=== PATIENT | male | born 1945 | race Caucasian/White ===

== ENCOUNTER → 2022-05-17 11:07 | Outpatient (CLI) | payer MEDICARE, SELFPAY ==
[2022-05-17 12:04] LABS: Appearance Urine UA CLEAR; Bilirubin Urine UA NEGATIVE (NEGATIVE); Color Urine UA YELLOW; Glucose Urine UA NEGATIVE (Negative); Ketones Urine UA NEGATIVE (NEGATIVE); Leukocyte Esterase Urine UA TRACE (NEGATIVE); Nitrite Urine UA NEGATIVE (Negative); Occult Blood Urine UA TRACE-INTACT (Negative); Protein Urine UA NEGATIVE (Negative); pH Urine UA 6.5 (4.5-8.0)
[2022-05-17 12:07] LABS: RBC Urine 0-1/HPF (0-5/HPF)
[2022-05-17 12:08] LABS: Bacteria Urine None Seen; Culture Indicated Urine Specimen Cultured; Squamous Epithelial Cell Urine 0-1 /HPF (0-5/HPF); WBC Urine 0-1/HPF (0-5/HPF)
[2022-05-17 12:11] LABS: Add Manual Diff / Slide Review NO; Basophils Absolute Auto 100 /uL (0-100); Basophils Percent Auto 0.6 % (0-2); Eosinophils Absolute Auto 300 /uL (0-450); Eosinophils Percent Auto 3.2 % (2-4); Hematocrit 40.1 % (41-53); Hemoglobin 13.7 g/dL (13.5-17.5); Lymphocytes Absolute Auto 1400 /uL (1100-4500); Lymphocytes Percent Auto 16.1 % (25-40); Mean Corpuscular HGB Conc 34.2 % (30-36); Mean Corpuscular Hemoglobin 29.4 PG (26-34); Monocytes Absolute Auto 700 /uL (0-900); Monocytes Percent Auto 8.3 % (3-14); Neutrophils Absolute Auto 6400 /uL (1500-7000); Neutrophils Percent Auto 71.8 % (50-75); Platelet Count 180 X10^3/uL (150-400); Red Blood Cell Count 4.66 X10^6/uL (4.5-5.9); Red Cell Distribution Width 14.2 % (11.6-14.8); White Blood Cell Count 8.9 X10^3/uL (4.5-11.0)
[2022-05-17 13:12] LABS: BUN Creatinine Ratio 31.9 (6-22); Blood Urea Nitrogen 22 mg/dL (9-20); Calcium 9.1 mg/dL (8.4-10.2); Carbon Dioxide 26 mmol/L (22-32); Chloride 104 mmol/L (98-107); Estimated Glomerular Filt Rate > 60 mL/min (>60); Glucose 82 mg/dL (80-110); HEMOLYSIS < 15 (0-50); Potassium 4.2 mmol/L (3.4-5.1); Sodium 139 mmol/L (137-145)
[2022-05-17 19:05] LABS: Hemoglobin A1C% w Est Avg Glu 5.9 % (4.0-6.0)
== END ==
PROVIDERS: PCP Nurse Practitioner Family; Referring Provider Orthopaedic Surgery; Visit Provider Orthopaedic Surgery
DX: Z01.818 Encounter for other preprocedural examination (principal); R73.9 Hyperglycemia, unspecified; Z01.812 Encounter for preprocedural laboratory examination; N39.0 Urinary tract infection, site not specified
CPT/HCPCS: 36415; 80048; 81001; 83036; 85025; 87086; 93005; 93010

== ENCOUNTER → 2022-06-11 12:47 | Outpatient (CLI) | payer MEDICARE, SELFPAY ==
[2022-06-11 13:58] LABS: COVID19 -Nasal RAPID Negative (Negative)
== END ==
PROVIDERS: PCP Nurse Practitioner Family; Referring Provider Orthopaedic Surgery; Visit Provider Orthopaedic Surgery
DX: Z20.822 Contact with and (suspected) exposure to COVID-19 (principal)
CPT/HCPCS: 87635; C9803

== ENCOUNTER 2022-06-14 09:03 | Day surgery (SDC) | payer MEDICARE, SELFPAY ==
[2022-06-10 09:09] VITALS: BMI 29.4
[2022-06-14] VITALS (17 sets, daily range): BP systolic 111–159; BP diastolic 51–84; PULSE 63–89; RESP 16–23; TEMP 36.1–36.9; O2SAT 91–100; BMI 29.4
--- NOTE | 2022-06-14 | DI.RAD.S_ITS ---
PROCEDURE: XR HIP W PEL IF DONE RT 2V INDICATIONS: RIGHT TOTAL HIP POST OP TECHNIQUE: AP pelvis and lateral view of the right hip acquired. COMPARISON: [facility], CR, XR PELVIS WITH LATERAL HIP RIGHT, 03/24/2022, 10:38. [facility], CR, XR PELVIS 1-2V, 06/14/2022, 11:51. FINDINGS: Bones: Patient is status post right hip arthroplasty, with hardware components in expected positions. The hip joint appears congruent. The visualized bony structures appear intact. Soft tissues: Overlying postoperative changes are noted. No suspicious soft tissue densities. Stable surgical clips in the right groin. IMPRESSION: Expected postsurgical change for right hip arthroplasty. Dictated by: Purvi Ellis MD, PhD on 06/14/2022 at 13:58 Approved by: Purvi Ellis MD, PhD on 06/14/2022 at 13:59
--- NOTE | 2022-06-14 06:00 | DI.RAD.S_ITS ---
PROCEDURE: XR PELVIS 1-2V INDICATIONS: INNER OP CESARIO TECHNIQUE: Intra-operative view of the pelvis and hip acquired. COMPARISON: None. FINDINGS: Bones: Intraoperative devices prior to placement of arthroplasty prostheses are in expected positions. No fractures or suspicious bony lesions. Soft tissues: Overlying surgical retractors are present, along with other intraoperative changes. IMPRESSION: Expected intraoperative surgical changes prior to placement of arthroplasty prosthesis. Dictated by: Purvi Ellis MD, PhD on 06/14/2022 at 14:18 Approved by: Purvi Ellis MD, PhD on 06/14/2022 at 14:18
[2022-06-14] MEDS: VANCOMYCIN 1,000 MG/200 ML PIGGYBACK 200 MG IV (09:45)
[2022-06-14] MEDS: CELECOXIB 200 MG CAPSULE PO (09:50)
[2022-06-14] MEDS: ACETAMINOPHEN 325 MG TABLET 975 MG PO (09:50)
[2022-06-14] MEDS: LACTATED RINGERS 1,000 ML 42 ML IV ×2 (10:00→12:43)
--- NOTE | 2022-06-14 10:05 | P.OP_ITS ---
Operative Date/Time/Diagnoses Date of procedure: 06/14/22 Time of procedure: 11:00 Pre-op diagnosis: Right hip osteoarthritis severe Post-op diagnosis: same Procedure & Clinicians Procedure: Right total hip arthroplasty posterior approach Same procedure as scheduled: Yes Indications: The patient has had progressively worsening right hip pain with radiographic changes consistent with arthritis. Non-operative management has failed and the patient has requested total hip replacement. The risks, benefits and alternatives to surgery were discussed with the patient prior to proceeding. Risks discussed included, but were not limited to, failure to relieve pain, leg length discrepancy, dislocation, stiffness, infection, nerve damage, deep venous thrombosis, pulmonary embolism, stroke, coma, heart attack, permanent paralysis and , as well as the potential need for eventual revision of the prosthetic. Surgeon: Summer Mari Mobile Qa Tester: Campos Foss Anesthesia Type: General and Spinal Operative Notes Findings: Severe right hip osteoarthritis, adequate stability Closure Type: primary Specimen(s): none sent Prosthetic devices, grafts, tissues, transplants, or devices: Mari and nephew R3 cup 56, size 7 anthology high offset, 36 x +4 cobalt chrome head, neutral poly liner,two 6.5 mm screws Applied: drain(s) Estimated Blood Loss (mL): 250 Blood products transfused: none Procedure in detail: The patient was seen in the pre-operative area, where the patient identified the right hip as the operative site and this was marked with my initials. The patient received pre-operative antibiotics and was taken to the operating room and placed on the operative table in the left lateral decubitus position after satisfactory anesthesia. A engraved roller inspector out was performed. The right leg was prepared from the ankle to the iliac crest with ChloroPrep in the usual fashion and draped through sterile drapes. The hip was approached through an approximately 20 cm incision centered over the greater trochanter and curving gently posteriorly as it went proximally. This was carried sharply to the fascia karine, which was divided and retracted with a self retaining retractor. The trochanteric bursa was excised with care being taken to avoid the sciatic nerve, which was identified and protected throughout the case. The short external rotators were incised and the capsulomuscular flap was raised and tagged for later repair. The hip was dislocated, and a femoral neck osteotomy performed approximately 15 mm above the lesser trochanter. Retractors were placed around the femur. The canal was opened with a box cutting osteotome, followed by a T handled reamer and a lateralizing reamer. The chili pepper broach was then used, followed by sequential broaching until there was good stability of the broach in the femur. Retractors were placed to expose the acetabulum. The labrum and central soft tissues were removed. Reaming was performed initially going up in 2 mm incremen ts, then 1 mm increments until good bite was obtained with an odd sized reamer. The cup 1 mm larger than the last reamer was then inserted using the appropriate anteversion guides. A trial neutral liner was placed. The broach was placed in the canal. A trial head and neck were then placed and the hip relocated and checked for leg length and stability. An intraoperative film confirmed the component position and no evidence of fracture. The cup shifted slightly with range of motion and we removed it reamed slightly more and replace the cup and placed 2 screws for stabilization. Neutral poly liner was placed. A 2nd intraoperative film was taken the 1st film was with a standard offset 2nd film I went to a high offset neck. The patient was stable in the position of sleep, of squatting, and could be put through a range of motion with 45 degrees internal rotation without dislocation. At 90 degrees flexion, internal rotation to 60? was possible before dislocation. This was felt to be satisfactory and the appropriate components were opened, and the trials were removed. The acetabular liner was impacted into position. The final stem was then impacted into the prepared femoral canal. A brief Betadine soak was performed while trialing with head options. The hip was meticulously irrigated with normal saline. Finally the femoral head was impacted onto the stem. The acetabulum was cleared of all material and the hip relocated one final time. The capsulomuscular flap was then repaired to the greater trochanter though an awl hole using the tag sutures. The short external rotators were repaired with a nonabsorbable suture. A deep drain was placed and brought out anteriorly. The fascia karine was closed with Vicryl. The subcutaneous layer was closed with barbed sutures and surgical glue. An Aquacel Ag dressing was applied and the patient was taken to recovery having tolerated the procedure well. Complications: none Post-operative Condition: stable Disposition: Acute Care Plan for aftercare: The patient will be maintained on a standard total hip replacement protocol with weight bearing as tolerated and posterior hip precautions. The patient will receive Aspirin and sequential compression devices for DVT prophylaxis. The patient will be discharged home when safe for the home environment.
--- NOTE | 2022-06-14 10:05 | PM.PREOP ---
Pre-operative Note COVID-19 COVID-19 status: Negative Interval Note History & Physical reviewed/Exam performed by Physician: Yes Changes to H&P: No
[2022-06-14] MEDS: CEFAZOLIN 2 GM/100 ML PREMIX 100 ML IV ×2 (10:56→20:12)
[2022-06-14] MEDS: TRANEXAMIC ACID 1,000 MG VIAL 2000 MG INJ ×2 (10:58→12:44)
--- NOTE | 2022-06-14 11:13 | SUR.OPER ---
Lateral on padded OR bed. Gel axillary roll. Arms secured on padded armboard with pillow supporting top arm. Padded hip positioner braces x4 - anterior and posterior chest and pelvis. Additional gel pad used anterior pelvis. Gel pad under bottom leg from knee to foot and secured with tape over sheet.
[2022-06-14] MEDS: BUPIVACAINE LIPOSOME 266 MG/20 ML VIAL INJ (11:19)
[2022-06-14] MEDS: BUPIVACAINE 0.5% W/ EPI (PF) 30 ML VIAL INJ (11:21)
[2022-06-14] MEDS: SODIUM CHLORIDE IRRIG SOLUTION 250 ML, POVIDONE-IODINE SPONGE STICKS 1 APPLIC IRR (12:53)
[2022-06-14] MEDS: OXYCODONE IR 5 MG TABLET PO ×2 (14:01→22:45)
[2022-06-14] MEDS: hydrOXYzine pamoate 25 MG CAPSULE PO (14:02)
[2022-06-14] MEDS: HYDROMORPHONE 2 MG INJ IV (14:07)
[2022-06-14] MEDS: LACTATED RINGERS 1,000 ML 125 ML IV ×2 (14:56→23:52)
--- NOTE | 2022-06-14 16:15 | PT.IIE ---
Current Diagnoses Unilateral primary osteoarthritis, left hip (06/14/22) Surgery Performed Operation Date: 06/14/22 11:15 Actual Procedures p Total Hip Arthroplasty(Right) - Summer Mari MD Surgical History (Last Updated 06/07/22 @ 09:22 by Ciara Villanueva, RN) History of surgery Hx of heart artery stent (04/28/17) Medical History (Last Updated 06/07/22 @ 09:22 by Ciara Villanueva, RN) Arthritis Chronic back pain Chronic neck pain Diverticulosis Glaucoma HLD (hyperlipidemia) HTN (hypertension) Kidney stones Neuropathy Osteoarthritis Psoriasis SOB (shortness of breath) Physical Therapy Inpatient Evaluation/Re-Eval M1 PT/OT-IP Prior Functional Status Start: 06/14/22 18:22 Freq: NEEDED Status: Active Protocol: Document 06/14/22 16:15 AB (Rec: 06/14/22 18:33 AB [id number]) Medical Review Prior Functional Status Medical History Reviewed Yes Communication able to make needs known Mobility and Gait pt stated that he is modified independent witha ll mobilities and ambulation using a SPC Social History Household Members spouse Living Arrangements House Number of Floors (Floors) 3 or More Floors Number of Stairs To Enter/Railing? 3 steps L rail ascending to enter the house 13 steps R rail ascending to bedroom level Home Environment Standard Height Toilet,Tub/ Shower Home Equipment Front Wheel Walker,Straight Cane,Raised Toilet Seat w/ Armrests,Hand Held Shower,Grab Bars In Shower M2 PT-IP Current Condition Start: 06/14/22 18:22 Freq: NEEDED Status: Active Protocol: Document 06/14/22 16:15 AB (Rec: 06/14/22 18:33 AB [email or web address]) Physical Therapy Current Condition Current Condition Evaluation Date 06/14/22 Treatment Diagnosis s/p R CESARIO posterior approach; difficulty in walking Onset Date 06/14/21 M3 PT-IP Subjective Start: 06/14/22 18:22 Freq: NEEDED Status: Active Protocol: Document 06/14/22 16:15 AB (Rec: 06/14/22 18:33 AB [email or web address]) Subjective Physical Therapy Visit Type Type Initial Evaluation Visit Start Time 16:15 Visit Stop Time 17:44 Total Visit Minutes 89 Number of POLEYARD SUPERVISOR Visits 0 Physical Therapy Visit Comments Patient Comments agreeable to do PT Therapy Pain Assessment Pain When Pain Assessed At Rest Pain Present Pain Present Pain Reported Location hip Intensity 2 Pain Management Techniques Apply Cold,Distraction, Modification of Treatment,Re- positioning,Timing of Activity with Medications M4 PT-IP Mobility and Gait Start: 06/14/22 18:22 Freq: NEEDED Status: Active Protocol: Document 06/14/22 16:15 AB (Rec: 06/14/22 18:33 AB [email or web address]) PT-Bed Mobility Assessment Supine to Sit Supine to Sit Minimal Assistance PT-Transfer Assessment Sit to and From Stand Sit to and from Stand Maximum Assistance,1 Person Assistance,Use of Upper Extremities Equipment Transfer Assistive Device Gait Belt,Front Wheeled Walker Orthotic/Prosthetic Devices or Brace: No Transfers Transfer Destination Chair Transfer Technique ambulated Transfer Ability Level of Assist Moderate Assistance,1 Person Assistance,Use of Upper Extremities Comments Mobility Comments educated pt on posterior hip precautions. BP in supine: 125/62. pt completed supine to sit min A and cues. tends to have BLE in extension during sitting and has increase posterior trunk lean. completed sit to stand max A x 2 and max cues for techniques. instructed to sit back down requiring max A for controlled descent. instructed pt to get up again and able with max A x 1 and max cues. ambulated towards the chair mod A and max cues. increase R knee flexion and pt stated that RLE seems longer than L. pt required increase time to ambulate with very slow pace. pt sat on the chair max A and max cues. c/o dizziness. BP checked: 121/ 54. informed nurse. positioned pt on the chair. call light and table placed within reach. set up for dinner. called spouse for caregiver training and stated that the earliest she can come is 11am. Gait Assessment Gait Gait Assistance Required: Moderate Assistance Distance (Feet) 15 Able to Maintain Weight Bearing Status Yes During Gait Assistive Devices Assistive Device Gait Belt,Front Wheeled Walker Orthotic/Prosthetic Devices or Brace: No Gait Deviations General Gait Pattern Decreased Stride Length, Decreased Feet Clearance Factors Limiting Gait Function Factors Limiting Gait Function Decreased Activity Tolerance, Decreased Strength,Difficulty Following Directions,Limited Range of Motion,Pain,Poor Balance,Poor Safety Awareness PT-Balance Assessment Sitting Balance and Reactions Static Sitting Balance Ability Fair Dynamic Sitting Balance Ability Fair Standing Balance and Reactions Static Standing Balance Ability Poor Dynamic Standing Balance Ability Poor Device Used FWW M5 PT-IP Objective Assessments Start: 06/14/22 18:22 Freq: NEEDED Status: Active Protocol: Document 06/14/22 16:15 AB (Rec: 06/14/22 18:33 AB [email or web address]) Orientation Orientation/Cognition Level of Alertness Alert Orientation Name,Place,Situation Language Function Ability No Deficits Noted Safety Awareness Decreased Safety Awareness Memory Description Short Term Impaired Gross Range of Motion Lower Extremity ROM Assessment Within Functional Limits Strength Lower Extremity Strength Assessment Right Impaired Hip 3+/5 Knee 4-/5 Sensation Assessment Sensation Gross Sensation WNL Muscle Tone Muscle Tone WNL Yes M6 PT-IP Treatment Start: 06/14/22 18:22 Freq: NEEDED Status: Active Protocol: Document 06/14/22 16:15 AB (Rec: 06/14/22 18:33 AB [email or web address]) Physical Therapy Treatment Education Education Provided Precautions,Weight Bearing Status,Post-Op Packet,Safety M7 PT-IP Assessment and Plan Start: 06/14/22 18:22 Freq: NEEDED Status: Active Protocol: Document 06/14/22 16:15 AB (Rec: 06/14/22 18:33 AB [email or web address]) PT Summary Assessment and Plan Potential Rehabilitation Potential Fair Status of Condition at Evaluation Evolving Summary Impairments Pain,ROM,Strength,Balance, Coordination,Sensation,Tone, Cognition,Bed Mobility, Transfers,Gait,Activity Tolerance Assessment Summary pt requiring max A for sit to stand and mod A for ambulation using FWW. requires cues for hip precautions. caregiver training set up with spouse at 11 am tomorrow. will continue to assess progress. pt also needs to complete stair climbing training. Goals Bed Mobility Goal Standby Assistance Transfer Goal Standby Assistance,Front Wheeled Walker Gait Goal Standby Assistance,Front Wheel Walker Gait Distance 100 Other Goals up/down 3 steps L rail ascending SBA up/down 13 steps R rail ascending SBA Frequency of Treatment Frequency Of Treatment Twice a Day Treatment Plan Physical Therapy Treatment Plan Bed Mobility Training,Transfer Training,Gait Training, Therapeutic Exercise,Balance Retraining,Post Op Education, Discharge Planning,Hot or Cold Pack,Neuromuscular Re-ed, Coordination Retraining,Manual Therapy Precautions Posterior Hip Precautions No Hip Flexion > 90 degrees,No Hip Internal Rotation,No Hip Adduction Weight Bearing Status Weight Bearing Status Weight Bear as Tolerated Allowed Weight Bearing Amount (enter % RLE WBAT or #) (%) Recommendations To Nursing Amount of Assist Needed 1 Person Assist Discharge Recommendations PT Discharge Recommendations Home with 02/01 Assist Available,Home Health,SNF Rehab,Outpatient PT,Home vs SNF Transportation Needs at Discharge Private Vehicle,Wheelchair/ Cabulance
[2022-06-14] MEDS: DOCUSATE 100 MG CAPSULE PO (20:12)
[2022-06-14] MEDS: LATANOPROST 0.005% OPHTH 2.5 ML 1 DROPS EYE-BOTH (20:12)
[2022-06-14] MEDS: ASPIRIN EC 81 MG TABLET PO (20:12)
[2022-06-14] MEDS: PREGABALIN 50 MG CAPSULE 100 MG PO (20:12)
--- NOTE | 2022-06-15 02:20 | PC.NURSE ---
Re-educated pt multiple times to not get out w/o assistance. Pt has spilled urinal 2x while trying to stand to urinate w/o assistance. Offered scheduled tyl/ibu, pt declined as it 'does not work for him', 5mg oxy given.
[2022-06-15 03:00] VITALS: BP 112/61; PULSE 76; TEMP 36.1; O2SAT 94
[2022-06-15] MEDS: CEFAZOLIN 2 GM/100 ML PREMIX 100 ML IV (03:10)
[2022-06-15] MEDS: IBUPROFEN 400 MG TABLET PO (05:05)
[2022-06-15 05:37] LABS: Hematocrit 35.1 % (41-53); Hemoglobin 11.7 g/dL (13.5-17.5)
[2022-06-15 07:00] VITALS: RESP 18
--- NOTE | 2022-06-15 08:08 | P.DS_ITS ---
History of Present Illness History of Present Illness Date Patient Seen: 06/15/22 Time Patient Seen: 08:08 Chief complaint: Hip pain Narrative: Patient notes pain is [id number]. Denies fever or chills. No nausea or vomiting. Patient has his home to assist him. Otherwise without complaints. Discharge Providers Provider Discharge Date: 06/15/22 Primary care physician: YOBANY Martins Consults: 06/14/22 06:00 Consult to Anesthesiology Routine Comment: Consulting Provider: Anesthesiologist Reason for consultation: Regional block for post operative pain control 06/14/22 14:41 Consult to Discharge Planning Routine Comment: Consult to Physical Therapy Evaluate & Treat Comment: Physician Instructions: post op CESARIO protocol Discharge provider: Campos Foss PA-C Summary Hospital Course Discharge Diagnosis: Right hip osteoarthritis, severe Hospital Course: Right total hip arthroplasty posterior approach Same procedure as scheduled: Yes Indications: The patient has had progressively worsening right hip pain with radiographic changes consistent with arthritis. Non-operative management has failed and the patient has requested total hip replacement. The risks, benefits and alternatives to surgery were discussed with the patient prior to proceeding. Risks discussed included, but were not limited to, failure to relieve pain, leg length discrepancy, dislocation, stiffness, infection, nerve damage, deep venous thrombosis, pulmonary embolism, stroke, coma, heart attack, permanent paralysis and , as well as the potential need for eventual revision of the prosthetic. Surgeon: Summer Mari Solderer Electronic: Campos Foss Anesthesia Type: General and Spinal Operative Notes Findings: Severe right hip osteoarthritis, adequate stability Closure Type: primary Specimen(s): none sent Prosthetic devices, grafts, tissues, transplants, or devices: Mari and nephew R3 cup 56, size 7 anthology high offset, 36 x +4 cobalt chrome head, neutral poly liner,two 6.5 mm screws Applied: drain(s) Estimated Blood Loss (mL): 250 Blood products transfused: none Patient admitted for the above-mentioned procedure. Patient consented to the same. Patient taken operating room yesterday June 14, 2022. The patient back in his room recovering well as in stable condition. Patient will work with physical therapy and be discharged home today if safe for home environment Status at Discharge Cognitive/behavioral status at discharge: at baseline, oriented Functional status at discharge: uses cane/walker Overall status at discharge: patient is progressing back to baseline Exam Vital Signs (past 8 hours): - 06/15/22 03:00 Temperature 97 F L Pulse Rate 76 Blood Pressure 112/61 Pulse Oximetry 94 Oxygen Flow Rate 0 Oxygen Delivery Method Room Air Oxygen Flow Rate 0 Narrative Exam Narrative: 76-year-old male resting comfortably in bed in no apparent distress. Dressing is clean, dry and intact. Motor functions intact bilateral lower extremities. Sensation grossly intact to light touch bilateral lower extremities. Const General: cooperative, healthy appearing and comfortable Nutritional Appearance: average body habitus Orientation: alert HENMT Head: normal to inspection Resp Effort & Inspection: normal respiratory effort Objective Labs Result Diagrams: 06/15/22 04:52 Labs: Laboratory Results - last 24 hr 06/15/22 04:52 Hgb 11.7 L Hct 35.1 L PFSH Medical History Arthritis Chronic back pain Chronic neck pain Diverticulosis Glaucoma HLD (hyperlipidemia) HTN (hypertension) Kidney stones Neuropathy Osteoarthritis Psoriasis SOB (shortness of breath) Surgical History History of surgery Hx of heart artery stent (04/28/17) Social History household members: spouse Smoking Status: Former smoker alcohol intake: current Discharge Assessment & Plan Assessment and Plan Assessment: Patient progressing as expected Plan of Treatment: Physical therapy Posterior hip precautions, weight-bearing as tolerated Aspirin and SCDs for DVT prophylaxis Patient has prescription for pain meds at home, to be taken as directed Discharge home today after physical therapy if safe for home environment. Discharge Plan Discharge Plan Patient Disposition: Home Discharge orders & Medications Discharge Orders: Discharge (Order); Ordered 06/15/22 Ordered By: Campos Foss Prescriptions: New aspirin 81 mg Tablet,Delayed Release (Dr/Ec) 81 mg PO BID Qty: 60 0RF docusate sodium 100 mg Capsule 100 mg PO BID Qty: 20 0RF Continued latanoprost 0.005 % Drops 1 drp EYE-BOTH BEDTIME atorvastatin 80 mg Tablet 80 mg PO DAILY furosemide 20 mg Tablet 20 mg PO DAILY pregabalin 100 mg Capsule 100 mg PO BEDTIME Discontinued aspirin [Aspir-81] 81 mg Tablet,Delayed Release (Dr/Ec) 81 mg PO DAILY Follow up/Referrals: Summer Mari MD [Physician] - As previously scheduled (Follow up with Dr Mari on 06/29/2022 @ 11:00 am at [facility] Maeve Valles ARNP [Primary Care Provider] - Diet/Activity/Treatments Diet: Diet as Tolerated Activity: Weight bearing as tolerated to left leg. Posterior hip precautions. Cold/Heat Therapy: Ice to hip as needed for pain. Skin/Wound/Dressing Care Report to your healthcare provider any signs of infection, such as:: chills, fever, night sweats, increased pain, unusual drainage and unusual redness Dressing: Keep dressing clean and dry Visit Report/Discharge Packet Instructions: DI for Hip Replacement Stand Alone Forms: Surgery Discharge Discharge Data Primary Care Provider: Maeve Valles Attending Provider: Summer Mari
[2022-06-15] MEDS: ATORVASTATIN 20 MG TABLET 80 MG PO (08:18)
[2022-06-15] MEDS: DOCUSATE 100 MG CAPSULE PO (08:19)
[2022-06-15] MEDS: ASPIRIN EC 81 MG TABLET PO (08:19)
[2022-06-15] MEDS: FUROSEMIDE 20 MG TABLET PO (08:19)
[2022-06-15] MEDS: OXYCODONE IR 10 MG TABLET PO (09:53)
[2022-06-15 11:00] VITALS: RESP 18; O2SAT 96
--- NOTE | 2022-06-15 11:00 | PT.IPTN ---
Current Diagnoses Unilateral primary osteoarthritis, left hip (06/14/22) Surgery Performed Operation Date: 06/14/22 11:15 Actual Procedures p Total Hip Arthroplasty(Right) - Summer Mari MD Physical Therapy Treatment Note M2 PT-IP Current Condition Start: 06/14/22 18:22 Freq: NEEDED Status: Discharge Protocol: Document 06/14/22 16:15 AB (Rec: 06/14/22 18:33 AB [id number]) Physical Therapy Current Condition Current Condition Evaluation Date 06/14/22 Treatment Diagnosis s/p R CESARIO posterior approach; difficulty in walking Onset Date 06/14/21 M3 PT-IP Subjective Start: 06/14/22 18:22 Freq: NEEDED Status: Discharge Protocol: Document 06/15/22 11:00 AB (Rec: 06/15/22 14:00 AB [email or web address]) Subjective Physical Therapy Visit Type Type Treatment Note Visit Start Time 11:00 Visit Stop Time 13:03 Total Visit Minutes 123 Number of CALL CENTER AGENT Visits 0 Physical Therapy Visit Comments Patient Comments agreeable to do PT Therapy Pain Assessment Pain When Pain Assessed At Rest Location hip Intensity 3 Scale Used Numeric (0 - 10) M4 PT-IP Mobility and Gait Start: 06/14/22 18:22 Freq: NEEDED Status: Discharge Protocol: Document 06/15/22 11:00 AB (Rec: 06/15/22 14:00 AB [email or web address]) PT-Bed Mobility Assessment Supine to Sit Supine to Sit Standby Assistance Sit to Supine Sit to Supine Standby Assistance PT-Transfer Assessment Sit to and From Stand Sit to and from Stand Minimal Assistance,Moderate Assistance,Maximum Assistance, 1 Person Assistance,Use of Upper Extremities Equipment Transfer Assistive Device Gait Belt,Front Wheeled Walker Orthotic/Prosthetic Devices or Brace: No Transfers Transfer Destination Bed,Toilet Transfer Technique ambulated Transfer Ability Level of Assist Contact Guard Assistance,1 Person Assistance,Use of Upper Extremities Comments Mobility Comments pt's spouse in room for caregiver training. educated spouse regarding pt's posterior hip precautions. pt completed supine to sit SBA and max cues to complete. completed sit to stand max A and max cues from EOB. pt easily gets anxious and easily distracted requiring cues for safety and hip precautions. instructed pt to sit back on EOB. educated again on sit <> stand techniques. able to complete sit to stand x 2 reps min to mod A and max cues. pt ambulated to the chair ~ 12 ft using fWW CGA and cues. pt sat on chair. Caregiver training conducted. educated spouse on how to use safety belt and how to assist pt. spouse was able to put safety belt on pt but has to redo x 2 . spouse assisted pt with sit to stand from chair x 2 reps min to mod A with spouse assisted. pt step transfer to EOB with spouse assisting CGA . completed sit to stand from EOB x 2 reps max A and max cues. informed pt and spouse that pt sits on a higher surface and preferable with arm rests. asked pt and spouse of bed's height at home and stated that it is high. pt requesting to use the toilet. sit to stand from bed mod to max A and ambulated to the toilet using FWW CGA. pt able to maintain standing SBA while using the toilet. pt ambulated towards the sink using FWW CGA and able to maintain standing SBA while completing handwashing. bed adjusted to simulate pt's bed height at home. pt ambulated to EOB using FWW SBA . completed sit to supine SBA and cues. required increase time to complete. pt able to stand from high bed with spouse assisting min A. pt ambulated in the hallway using FWW CGA ~ 100 ft. assisted pt towards the stairs in a w/c. pt stated that he has 4 steps + 15 steps L rail ascending to get into the house and 13 steps again to get to bedroom level. educated pt and spouse regarding stair climbing. pt completed up/down steps holding on the R rail with B hands with PT assisting and pt completed min to mod A and cues. pt repeated with spouse assisting and spouse was able to assist pt. pt completed stairs again holding on to L rail with B hands and completed with spouse assisting. pt assisted back to his room. ambulated from w/c to chair using FWW SBA. spouse able to assist and cue pt. Gait Assessment Gait Gait Assistance Required: Contact Guard Assist Distance (Feet) 100 Able to Maintain Weight Bearing Status Yes During Gait Assistive Devices Assistive Device Gait Belt,Front Wheeled Walker Orthotic/Prosthetic Devices or Brace: No Gait Deviations General Gait Pattern Antalgic,Decreased Stride Length,Decreased Feet Clearance,Step-to Gait,Wide Based Gait Factors Limiting Gait Function Factors Limiting Gait Function Decreased Activity Tolerance, Decreased Strength,Difficulty Following Directions,Limited Range of Motion,Pain,Poor Balance,Poor Safety Awareness, Respiratory Distress Stair Climbing Assessment Evaluation Level of Assist On Stairs Minimal Assistance,Moderate Assistance Devices Stair Climbing Assistive Devices Left Railing,Right Railing Technique/Endurance Stair Climbing Direction Ascend and Descend Stair Climbing Technique Step to Step Number of Steps Climbed 3 Stair Climbing Set # Repetitions (reps) 3 M5 PT-IP Objective Assessments Start: 06/14/22 18:22 Freq: NEEDED Status: Discharge Protocol: Document 06/14/22 16:15 AB (Rec: 06/14/22 18:33 AB [email or web address]) Orientation Orientation/Cognition Level of Alertness Alert Orientation Name,Place,Situation Language Function Ability No Deficits Noted Safety Awareness Decreased Safety Awareness Memory Description Short Term Impaired Gross Range of Motion Lower Extremity ROM Assessment Within Functional Limits Strength Lower Extremity Strength Assessment Right Impaired Hip 3+/5 Knee 4-/5 Sensation Assessment Sensation Gross Sensation WNL Muscle Tone Muscle Tone WNL Yes M6 PT-IP Treatment Start: 06/14/22 18:22 Freq: NEEDED Status: Discharge Protocol: Document 06/15/22 11:00 AB (Rec: 06/15/22 14:00 AB [email or web address]) Physical Therapy Treatment Education Education Provided Precautions,Weight Bearing Status,Safety M7 PT-IP Assessment and Plan Start: 06/14/22 18:22 Freq: NEEDED Status: Discharge Protocol: Document 06/15/22 11:00 AB (Rec: 06/15/22 14:00 AB [email or web address]) PT Summary Assessment and Plan Potential Rehabilitation Potential Good Summary Impairments Pain,ROM,Strength,Balance, Coordination,Sensation,Tone, Cognition,Bed Mobility, Transfers,Gait,Activity Tolerance Progress Towards Goals Slow Progress due to Activity Tolerance Assessment Summary caregiver training conducted and spouse was able to assist pt. pt plans to go home today . informed pt and spouse regarding equipement needs and understood. pt may go home when medically stable. Goals Bed Mobility Goal Standby Assistance Transfer Goal Standby Assistance,Front Wheeled Walker Gait Goal Standby Assistance,Front Wheel Walker Gait Distance 100 Other Goals up/down 3 steps L rail ascending SBA up/down 13 steps R rail ascending SBA Frequency of Treatment Frequency Of Treatment Twice a Day Treatment Plan Physical Therapy Treatment Plan Bed Mobility Training,Transfer Training,Gait Training, Therapeutic Exercise,Balance Retraining,Post Op Education, Discharge Planning,Hot or Cold Pack,Neuromuscular Re-ed, Coordination Retraining,Manual Therapy Precautions Posterior Hip Precautions No Hip Flexion > 90 degrees,No Hip Internal Rotation,No Hip Adduction Weight Bearing Status Weight Bearing Status Weight Bear as Tolerated Allowed Weight Bearing Amount (enter % RLE WBAT or #) (%) Recommendations To Nursing Amount of Assist Needed 1 Person Assist Discharge Recommendations PT Discharge Recommendations Home with 02/01 Assist Available,Home Health, Outpatient PT Transportation Needs at Discharge Private Vehicle,Wheelchair/ Cabulance
--- NOTE | 2022-06-15 11:43 | PC.NURSE ---
Addendum entered by Natalia Vick R.N. 06/15/22 13:39: Pt ride arrived D/C instructions given HL D/C intact Pt escorted by staff via W/C to waiting vehicle D/C in stable post op status. Original Note: Pt A/O Med @ 2431 for discomfort, w/good relief. Dsg to surgical site CDI. HL LFA intact/patent Has received D/C orders Call light w/in reach, pt calls appropriately for needs
--- NOTE | 2022-06-15 13:53 | CM.DANOTE ---
Addendum entered by DEVON Diop 06/15/22 14:00: DC Note: Patient cleared for discharge, home w/spouse. Spouse to transport. Outpatient PT ROYCE Original Note: Initial DCP Assessment Note Pt is a 76 yo male, resident of [place] , now POD#1 from p Total Hip Arthroplasty(Right) - Summer Mari MD PCP: Maeve Valles Payer: MCR/[employer] Reviewed chart, pt discussed in multidisciplinary rounds this morning. 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 Spouse completed caregiver training this morning No barriers expected for patient's safe discharge home w/family to assist; close outpatient f/u recommended. 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 Yes Advance Directives on File No History Provided By Patient,Significant Other, Medical Record Prior Living Arrangements House Household Members spouse Type of transporation used prior to Relies on Others admit Independent with ADL's Yes Is patient alert and oriented? Yes Caregiver for Another No DME Already Rented / Owned Cane Patient/Family Preference Home with Home Health Barriers to Discharge No Comment Discharge this afternoon or tomorrow, likely would benefit from HH vs outpatient PT, will plan to follow closely for recs from PT Discharge Plan Home Transportation Arrangement Spouse Additional Comment r/o need for HH
== END 2022-06-15 13:42 | disposition home or self-care (01) ==
LOC: OR 09:04 → AC 09:04
PROVIDERS: PCP Nurse Practitioner Family; Referring Provider Orthopaedic Surgery; Visit Provider Orthopaedic Surgery
PROC: 0SR90JZ Replacement of Right Hip Joint with Synthetic Substitute, Open Approach (ICD-10-PCS; CPT 27130; principal; 2022-06-14 11:15)
DX: M16.11 Unilateral primary osteoarthritis, right hip (principal); J44.9 Chronic obstructive pulmonary disease, unspecified; I10 Essential (primary) hypertension; I51.9 Heart disease, unspecified
CPT/HCPCS: 27130; 36415; 72170; 73502; 85014; 85018; 97116; 97162; 97530; C1776; C9290; J0690; J1100; J1170; J2250; J2405; J2704; J3010

== ENCOUNTER → 2022-09-08 09:02 | Outpatient (CLI) | payer MEDICARE, SELFPAY ==
[2022-06-14 14:46] VITALS: BMI 29.4
--- NOTE | 2022-09-08 09:04 | DI.NM.S_ITS ---
PROCEDURE: NM NATACHA PERF SPECT REST & STR Rest and exercise myocardial perfusion SPECT with gated imaging and ejection fraction RADIOPHARMACEUTICAL: 12.3 mCi Tc-99m sestamibi IV at rest and 24.4 mCi Tc-99m sestamibi IV at peak exercise. A one day-protocol was performed. INDICATIONS: Dyspnea on exertion TECHNIQUE: Radiopharmaceutical was injected at peak stress test, and also at rest. SPECT images were obtained. SPECT myocardial perfusion images were displayed in short axis, horizontal long axis, and vertical long axis views. Gated images were reviewed using [employer] software. COMPARISON: None. CARDIAC STRESS: A standard Tre treadmill exercise tolerance test was performed by the patient under the supervision of an attending staff. The patient exercised for 5 minutes and 2 seconds; functional aerobic impairment (HECTOR) is +9%. Hemodynamic data: There is normal blood pressure and heart rate response to exercise stress. Patient achieved 110% of maximum predicted heart rate at peak exercise. Symptoms: Patient denied chest pain during exercise. EKG: No diagnostic EKG changes of ischemia; no ectopy. FINDINGS: Raw data: There is good myocardial labeling by radiotracer. No significant motion artifacts. Sugt-pg-pcwah ratio is 0.36 (normal is less than 0.38 for sestamibi tracer, and less than 0.50 for thallium tracer). Left ventricle function: Gated images demonstrate normal left ventricle wall thickening. No segmental wall motion abnormality. No transient ischemic dilation; TID is 0.84 (normal less than 1.3). The left ventricle resting end-diastolic volume is 144 mL. Left ventricle stress ejection fraction is 71%; normal values are above 45%. Myocardial perfusion: There is a moderately intense fixed defect in the inferior wall that improves to mildly intense with prone, suggesting diaphragmatic attenuation and a small non-transmural infarction. There is a small, moderately intense fixed apical inferior wall defect consistent with prior infarction. No ischemia. IMPRESSION: Abnormal treadmill nuclear stress test consistent with prior infarction. No ischemia. 1) There is a moderately intense fixed defect in the inferior wall that improves to mildly intense with prone, suggesting diaphragmatic attenuation and a small non-transmural infarction. There is a small, moderately intense fixed apical inferior wall defect consistent with prior non-transmural infarction. No ischemia. 2) Normal left ventricular size, wall motion, and systolic function (EF 71% post stress). 3) No diagnostic ST changes with exercise. 4) No angina during the study. 5) Slightly reduced exercise tolerance (6.1METs, HECTOR +9%). Target heart rate achieved. Appropriate BP response to exercise. 6) Compared to the nuclear stress test done 12/20/2011, some of the fixed perfusion defects didn't resolved with prone imaging. Dictated by: Micky Hess MD on 09/09/2022 at 13:50 Approved by: Micky Hess MD on 09/09/2022 at 13:55
== END ==
PROVIDERS: PCP Nurse Practitioner Family; Referring Provider Nurse Practitioner Family; Visit Provider Nurse Practitioner Family
DX: R94.39 Abnormal result of other cardiovascular function study (principal); I70.0 Atherosclerosis of aorta; R06.09 Other forms of dyspnea; I10 Essential (primary) hypertension; I65.29 Occlusion and stenosis of unspecified carotid artery; E78.2 Mixed hyperlipidemia
CPT/HCPCS: 78452; 93017; A9502

== ENCOUNTER → 2025-01-16 08:15 | Outpatient (CLI) | payer MEDICARE, SELFPAY ==
[2022-06-14 14:46] VITALS: BMI 29.4
[2025-01-16 08:36] LABS: Add Manual Diff / Slide Review NO; Hematocrit 42.1 % (41-53); Hemoglobin 14.5 g/dL (13.5-17.5); Lymphocytes Absolute Auto 1100 /uL (1100-4500); Mean Corpuscular HGB Conc 34.3 % (30-36); Mean Corpuscular Hemoglobin 30.3 PG (26-34); Mean Corpuscular Volume 88.2 fL (80-100); Platelet Count 202 X10^3/uL (150-400)
--- NOTE | 2025-01-16 08:40 | EKG_ITS ---
[address] [address] Test Date: 2025-01-16 Pat Name: Ellis Khalil Department: 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
[2025-01-16 08:47] LABS: Hemoglobin A1C% w Est Avg Glu 6.1 % (4.0-6.0)
[2025-01-16 08:51] LABS: Blood Urea Nitrogen 19 mg/dL (9-20); Calcium 9.2 mg/dL (8.4-10.2); Carbon Dioxide 28 mmol/L (22-32); Chloride 104 mmol/L (98-107); Estimated Glomerular Filt Rate > 60 mL/min (>60); Glucose 98 mg/dL (70-99); HEMOLYSIS < 15 (0-50); Potassium 4.4 mmol/L (3.4-5.1); Sodium 143 mmol/L (137-145)
[2025-01-16 09:16] LABS: Appearance Urine UA CLEAR; Bilirubin Urine UA NEGATIVE (NEGATIVE); Color Urine UA YELLOW; Glucose Urine UA NEGATIVE (Negative); Ketones Urine UA NEGATIVE (NEGATIVE); Leukocyte Esterase Urine UA NEGATIVE (NEGATIVE); Nitrite Urine UA NEGATIVE (Negative); Occult Blood Urine UA 1+ (Negative); Protein Urine UA NEGATIVE (Negative); Specific Gravity Urine UA 1.020 (1.000-1.035); Urobilinogen Urine UA 0.2 E.U./dL (0.2); pH Urine UA 5.5 (4.5-8.0)
[2025-01-16 09:31] LABS: Culture Indicated Urine Cult Not Indicated
== END ==
PROVIDERS: PCP Nurse Practitioner Family; Referring Provider Nurse Practitioner Family; Visit Provider Orthopaedic Surgery
DX: Z01.818 Encounter for other preprocedural examination (principal); R73.09 Other abnormal glucose
CPT/HCPCS: 36415; 80048; 81001; 83036; 85025; 93005

== ENCOUNTER 2025-02-25 10:49 | Day surgery (SDC) | payer MEDICARE, SELFPAY ==
[2022-06-14 14:46] VITALS: BMI 29.4
[2025-02-17 13:13] VITALS: BMI 29.7
[2025-02-25] VITALS (14 sets, daily range): BP systolic 109–175; BP diastolic 61–89; PULSE 72–86; RESP 11–32; TEMP 36.1–36.6; O2SAT 89–98; BMI 29.7
--- NOTE | 2025-02-25 | DI.RAD.S_ITS ---
PROCEDURE: XR PELVIS 1-2V INDICATIONS: INTRA OP LEFT HIP TECHNIQUE: 1 view(s) of the pelvis acquired. COMPARISON: [facility], CR, XR PELVIS 1-2V, 06/14/2022, 11:51. [facility], CR, XR PELVIS WITH LATERAL HIP LEFT, 01/10/2025, 10:29. FINDINGS AND IMPRESSION: Left hip arthroplasty with surrounding soft tissue surgical changes. Similar appearance of the right hip arthroplasty. Hardware appear to be in expected radiographic position. Dictated by: Yovani Elaine M.D. on 02/25/2025 at 16:41 Approved by: Yovani Elaine M.D. on 02/25/2025 at 16:42
--- NOTE | 2025-02-25 06:00 | DI.RAD.S_ITS ---
PROCEDURE: XR HIP W PEL IF DONE LT 2V INDICATIONS: total left hip TECHNIQUE: AP pelvis and lateral view of the hip acquired. COMPARISON: [facility], MALLIKA, XR HIP W PEL IF DONE RT 2V, 06/14/2022, 13:34. FINDINGS: Bones: Patient is status post left hip arthroplasty, with hardware components in expected positions. The hip joint appears congruent. The visualized bony structures appear intact. Stable appearance of prior right hip arthroplasty. Soft tissues: Overlying postoperative changes are noted. No suspicious soft tissue densities. IMPRESSION: Expected post-operative appearance of a hip arthroplasty. Approved by: Kiana Vásquez M.D.,Ph.D. on 02/25/2025 at 17:26
[2025-02-25] MEDS: LACTATED RINGERS 1,000 ML 42 ML IV ×2 (11:44→16:13)
[2025-02-25] MEDS: ACETAMINOPHEN 325 MG TABLET 975 MG PO (11:45)
[2025-02-25] MEDS: CELECOXIB 200 MG CAPSULE PO (11:45)
[2025-02-25] MEDS: FAMOTIDINE 20 MG/2 ML VIAL IV (11:46)
[2025-02-25] MEDS: GABAPENTIN 300 MG CAPSULE PO (12:10)
[2025-02-25] MEDS: VANCOMYCIN 1,000 MG/200 ML PIGGYBACK 200 MG IV (12:59)
--- NOTE | 2025-02-25 13:36 | PM.PREOP ---
Pre-operative Note Interval Note History & Physical reviewed/Exam performed by Physician: Yes Changes to H&P: No
[2025-02-25] MEDS: TRANEXAMIC ACID 1,000 MG VIAL 1000 MG INJ ×2 (14:00→15:39)
--- NOTE | 2025-02-25 14:15 | SUR.OPER ---
Lateral on padded OR bed. Gel axillary roll in place. Arms secured on padded armboard with pillow supporting top arm. Padded hip positioner braces x4 - anterior and posterior chest and pelvis. Additional gel pad used anterior pelvis. Gel pad under bottom leg from knee to foot and secured with tape over sheet. Head aligned on pillow. Final position approved by Dr. Mari.
[2025-02-25] MEDS: BUPivacaine 0.25% W/ EPI (PF) 30 ML VIAL 60 ML INJ (14:22)
[2025-02-25] MEDS: SODIUM CHLORIDE IRRIG SOLUTION 250 ML, EPINEPHrine 1 MG IRR (14:23)
--- NOTE | 2025-02-25 16:12 | PM.OP.1 ---
Operative Date/Time/Diagnoses Date of procedure: 02/25/25 Time of procedure: 13:30 Pre-op diagnosis: left hip OA Post-op diagnosis: same Procedure & Clinicians Procedure: Left total hip arthroplasty posterior approach Same procedure(s) as scheduled: Yes Indications: The patient has had progressively worsening left hip pain with radiographic changes consistent with arthritis. Non-operative management has failed and the patient has requested total hip replacement. The risks, benefits and alternatives to surgery were discussed with the patient prior to proceeding. Risks discussed included, but were not limited to, failure to relieve pain, leg length discrepancy, dislocation, stiffness, infection, nerve damage, deep venous thrombosis, pulmonary embolism, stroke, coma, heart attack, permanent paralysis and , as well as the potential need for eventual revision of the prosthetic. Surgeon: Summer Mari Therapeutic Consultant: Amilcar Rodriguez Anesthesia Type: General and Spinal Operative Notes Findings: Severe left hip OA, adequate stability, adequate bone Closure Type: primary Specimen(s): none sent Prosthetic devices, grafts, tissues, transplants, or devices: [employer] anthology standard offset size 7, 58 mm R3 cup, neutral poly liner,2 6.5 mm screws, 36 +0 cobalt chrome head Applied: none Estimated Blood Loss (mL): 250 Blood products transfused: none Procedure in detail: The patient was seen in the pre-operative area, where the patient identified the left hip as the operative site and this was marked with my initials. The patient received pre-operative antibiotics and was taken to the operating room and placed on the operative table in the right lateral decubitus position after satisfactory anesthesia. A registered phlebotomist part time out was performed. The left leg was prepared from the ankle to the iliac crest with ChloroPrep in the usual fashion and draped through sterile drapes. A PA was used during the procedure and was essential for intraoperative retraction and safe implantation of the components. The hip was approached through an approximately 20 cm incision centered over the greater trochanter and curving gently posteriorly as it went proximally. This was carried sharply to the fascia karine, which was divided and retracted with a self retaining retractor. The trochanteric bursa was excised with care being taken to avoid the sciatic nerve, which was identified and protected throughout the case. The short external rotators were incised and the capsulomuscular flap was raised and tagged for later repair. The hip was dislocated, and a femoral neck osteotomy performed approximately 15 mm above the lesser trochanter. Retractors were placed around the femur. The canal was opened with a box cutting osteotome, followed by a T handled reamer and a lateralizing reamer. The chili pepper broach was then used, followed by sequential broaching until there was good stability of the broach in the femur. Retractors were placed to expose the acetabulum. The labrum and central soft tissues were removed. Reaming was performed initially going up in 2 mm increments, then 1 mm increments until good bite was obtained with an odd sized reamer. The cup 1 mm larger than the last reamer was then inserted using the appropriate anteversion guides. It was further stabilized with 2 screws. A trial neutral liner was placed. The broach was placed in the canal. A trial head and neck were then placed and the hip relocated and checked for leg length and stability. An intraoperative film confirmed the component position and no evidence of fracture. The patient was stable in the position of sleep, of squatting, and could be put through a range of motion with 45 degrees internal rotation without dislocation. At 90 degrees flexion, internal rotation to 70? was possible before dislocation. This was felt to be satisfactory and the appropriate components were opened, and the trials were removed. The acetabular liner was impacted into position. The final stem was then impacted into the prepared femoral canal. A brief Betadine soak was performed while trialing with head options. The hip was meticulously irrigated with normal saline. Finally the femoral head was impacted onto the stem. The acetabulum was cleared of all material and the hip relocated one final time. The capsulomuscular flap was then repaired to the greater trochanter though an awl hole using the tag sutures. The short external rotators were repaired with a nonabsorbable suture. The fascia karine was closed with Vicryl. The subcutaneous layer was closed with barbed sutures and surgical glue. A ramírez dressing was applied and the patient was taken to recovery having tolerated the procedure well. Complications: none Post-operative Condition: stable Disposition: Acute Care Plan for aftercare: The patient will be maintained on a standard total hip replacement protocol with weight bearing as tolerated and posterior hip precautions. The patient will receive Aspirin and sequential compression devices for DVT prophylaxis. The patient will be discharged home when safe for the home environment.
[2025-02-25] MEDS: ALBUTEROL/IPRATROPIUM 3 ML AMPUL INH (16:45)
[2025-02-25] MEDS: LACTATED RINGERS 1,000 ML 100 ML IV (18:37)
[2025-02-25] MEDS: ACETAMINOPHEN 325 MG TABLET 650 MG PO ×2 (18:39→23:17)
--- NOTE | 2025-02-25 19:17 | PC.NURSE ---
Patient arrived to room 220 at 1730 this evening. VSS, afebrile on RA. FLY dressing to L hip C/D/I. Patient states pain is well controlled. ICE packs to hips.Posterior hip precautions reviewed. He states he is very hungry and tolerates sandwhiches and snackswell. Oriented to room, call light in reach, SCD's on,admission assessment completed. IVF LR at 100 ml/hr,bed alarm on. Continuous monitoring. Patient lastvoided 11:15 a.m. per OPERATIONS RESEARCH SCIENTIST.
[2025-02-25] MEDS: DOCUSATE 100 MG CAPSULE PO (20:37)
[2025-02-25] MEDS: ASPIRIN EC 81 MG TABLET PO (20:37)
[2025-02-26 04:32] LABS: Hematocrit 36.1 % (41-53); Hemoglobin 12.2 g/dL (13.5-17.5)
[2025-02-26] MEDS: ACETAMINOPHEN 325 MG TABLET 650 MG PO ×2 (05:42→12:00)
--- NOTE | 2025-02-26 07:22 | PM.DS.1 ---
History of Present Illness History of Present Illness Chief complaint: L CESARIO *OPB* Narrative: He did well overnight. He has minimal pain in his hip. He has not been up with therapy. Discharge Providers Provider Discharge Date: 02/26/25 Primary care physician: YOBANY Martins Consults: 02/17/25 14:40 Consult to Anesthesiology Routine Comment: Consulting Provider: Anesthesiologist Reason for consultation: Surgeon requested re: Cardiac history 02/25/25 06:00 Consult to Anesthesiology Routine Comment: Consulting Provider: Anesthesiologist Reason for consultation: Regional block for post operative pain control Has provider been notified: No 02/25/25 17:45 Consult to Discharge Planning Routine Comment: Consult to Occupational Therapy Evaluate & Treat Comment: Physician Instructions: Evaluate and treat Consult to Physical Therapy Evaluate & Treat Comment: Physician Instructions: post op CESARIO protocol Discharge provider: Summer Mari MD Summary Hospital Course Discharge Diagnosis: Left hip osteoarthritis. Left total hip arthroplasty. Hospital Course: Patient underwent a left total hip arthroplasty. He tolerated the procedure well. He was mobilized with physical therapy. Status at Discharge Cognitive/behavioral status at discharge: oriented Functional status at discharge: uses cane/walker Overall status at discharge: patient is progressing back to baseline Exam Vital Signs (past 8 hours): Oxygen Delivery Method Room Air Oxygen Flow Rate 0 Narrative Exam Narrative: He is alert he is oriented his dressings intact and dry he can move his toe flexors and extensors his calves are soft bilaterally without pain Objective Labs 02/26/25 04:01 Labs: Laboratory Results - last 24 hr 02/26/25 04:01 Hgb 12.2 L Hct 36.1 L PFSH Medical History (Updated 02/17/25 @ 13:57 by Ciara Villanueva RN) First degree AV block CAD (coronary artery disease), [place] coronary artery Vasovagal syncope Carotid stenosis Pacemaker (07/19/23) Complete heart block (07/19/23) COPD (chronic obstructive pulmonary disease) Psoriasis Arthritis Chronic neck pain Chronic back pain Osteoarthritis Kidney stones Diverticulosis SOB (shortness of breath) HLD (hyperlipidemia) HTN (hypertension) Glaucoma Neuropathy Surgical History (Updated 02/17/25 @ 14:55 by Ciara Villanueva RN) Hx of abdominal surgery (~1979) Hx of heart artery stent (07/19/23) 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 Plan of Treatment: Stable for discharge to home. Discharge Plan Discharge Plan Patient Disposition: Home Provider Discharge Comment: DC Discharge orders & Medications Discharge Orders: Discharge (Order); Ordered 02/26/25 Ordered By: Summer Mari Prescriptions: New ondansetron 4 mg Tablet,Disintegrating 4 mg PO Q4HR PRN (Reason: Nausea) Qty: 10 0RF oxycodone 5 mg Tablet 5 mg PO Q4H PRN (Reason: Pain, Moderate (4-6)) Qty: 40 0RF Continued latanoprost 0.005 % Drops 1 drp EYE-BOTH BEDTIME atorvastatin 80 mg Tablet 80 mg PO DAILY furosemide 20 mg Tablet 20 mg PO DAILY pregabalin 100 mg Capsule 100 mg PO BEDTIME gabapentin 300 mg capsule 300 mg PO BID meloxicam 15 mg tablet 15 mg PO DAILY PRN (Reason: Pain) aspirin 81 mg Tablet,Delayed Release (Dr/Ec) 81 mg PO BID Qty: 90 0RF Follow up/Referrals: Maeve Valles ARNP [Primary Care Provider, Nursing] Diet/Activity/Treatments Diet: Diet as Tolerated Activity: Weightbear as tolerated. Ambulate with assistive devices. Avoid falls and high hip flexion. Cold/Heat Therapy: Ice upon surgical site up to 20 minutes every hour. Skin/Wound/Dressing Care Skin care: ok to shower. Report to your healthcare provider any signs of infection, such as:: chills, fever, night sweats, increased pain, unusual drainage and unusual redness Dressing: Keep dressing clean and dry. If dressing becomes dirty or disrupted may change. Visit Report/Discharge Packet Instructions: DI for Hip Replacement, DI for Prescription Opioid Use Stand Alone Forms: Patient Portal/API, Surgery Discharge Print Language: Macanese Discharge Data Primary Care Provider: Maeve Valles Attending Provider: Summer Mari VTE Deep Vein Thrombosis/Pulmonary Embolism Present on Admission: No
[2025-02-26 08:00] VITALS: BP 124/70; PULSE 85; RESP 15; TEMP 36.9; O2SAT 91
--- NOTE | 2025-02-26 08:50 | CM.DANOTE ---
Initial DCP Assessment Note. Review EMR and PT Interview. Met with patient at bedside to discuss discharge needs.PT is alert x 4 sitting up in chair. No acute distress. Patient lives independently with DME alone in her own home. PT's , Liss, will be transporting PT home upon discharge. Payor: JACI PCP: Dr. Maeve Valles Summary & Plan: Post OP Elective Left total Hip Replacement. Plan: discharge to home today after Physical Therapy eval. Discharge Planning/Care Management Advanced directive, confirm from FAMILY Start: 02/25/25 18:07 Freq: Q24H Status: Active Protocol: Document 02/25/25 19:00 MS (Rec: 02/25/25 21:56 MS [id number]) Advance Directive, confirm on record Time 19:15 Person contacted patient Copy received No CM Discharge Assessment Start: 02/25/25 15:39 Freq: Status: Active Protocol: Document 02/26/25 08:46 SM (Rec: 02/26/25 08:50 SM [id number]) Discharge Planning Assessment Assigned Discharge Liss SAMUEL CM Air Traffic Control Manager Provider Dr. Maeve Valles Insurance Medicare Advance Directives? Yes Advance Directives No on File History Provided By Patient,Significant Other,Medical Record Has Patient been No admitted in last 30 days? Prior Living House Arrangements Household Members spouse Comment , Liss, will transport PT home. Type of Drives own vehicle transporation used prior to admit Independent with ADL Yes 's Is patient alert and Yes oriented? Needs Assistance Bathing,Grooming,Home Chores / Shopping With Caregiver for No Another DME Already Rented / FWW / Walker,Cane Owned Patient/Family Home with Home Health Preference Barriers to No Discharge Comment Discharge this afternoon or tomorrow, likely would benefit from HH vs outpatient PT, will plan to follow closely for recs from PT Discharge Plan Home Transportation Spouse Arrangement Additional Comment r/o need for HH Review Status In Process Please Provide Date 02/26/25 Initial DC Assessment Was Performed Next Review Type Continued Stay Review Pre-Anesthesia Assessment Start: 02/17/25 13:13 Freq: Status: Active Protocol: Document 02/17/25 13:13 CAB (Rec: 02/17/25 14:39 CAB [id number]) Pre-Anesthesia Assessment PAC Comment Phone assess 02/17/25 Preferred Name Al Patient Information Phone Assessment Reviewed Via Assessment Completed Patient With Diagnostic Results BMP/CMP,CBC,EKG Comment Labs/EKG @ [facility] 01/16/25 Primary Care Maeve Valles Provider Seen Specialist in Yes Last 12 Months Specialist Seen Supervisor Publications Production,Orthopedist,Other Primary Language South African Preferred Language South African Fishing Gear Mechanic Required No Height 185.42 cm Weight 102.058 kg Body Mass Index (BMI 29.7 ) Hearing Ability Hearing Impaired Visual Assist Magnifying Glass Dentition Type Full- Upper & Lower Barriers to Learning Auditory Hx Anesthesia No Reactions Hx Family Anesthesia No Reaction Hx Malignant No Hyperthermia Hx Blood No Transfusions Anesthesia Review Yes: Surgeon requested re: Cardiac history Requested Emt Driver No alcohol intake current Alcohol intake holidays/special occasions only frequency Smoking Status Former smoker how long ago did Quit 21 years ago, hx of 3PPD patient quit smoking Substance Use Type [ does not use #R] Pain Present Pain Reported Musculoskeletal Abnormal Gait,Back Pain,Difficulty Walking,Joint Pain, Symptoms Neck Pain History of Falling ( No Recent or History of ) Patient is No completely paralyzed or completely immobile Prosthesis or Cane Orthotic Device Mental Status Oriented to own ability Is patient on oxygen No ? Does patient have Yes VERAS/SOB Hx Sleep Apnea No CPAP/BIPAP use not prescribed Currently Taking a No Beta Tom Can You Climb a Yes Flight of Stairs Without SOB Hx Chest Pain Yes: Prior to cardiac stents Hx SOB Yes: Prior to cardiac stents Hx Syncope or Yes Dizziness Anti-Coagulant Yes: ASA 81mg-advised ok to continue per surgeon Therapy Has a Supervisor Publications Production Yes Supervisor Publications Production name Dr. Payton [employer] Cardiac Testing No Hx Pacemaker/ICD Yes: Pacer form scanned and in surgery folder Pacemaker Rep No Required? Diet Type At Home Regular Dysphagia No Gastrointestinal None Symptoms Genitourinary Dribbling Symptoms Bladder Pattern Nocturia Urinary Catheter No Present Hx Urinary Self No Catheterization Diabetes No HgbA1C 6.1 Date 01/16/25 Hx Drug Resistant No Organism Presence of external Yes: Cardiac stents, right hip or internal medical devices? Received a COVID Yes vaccine? Marital Status Lives With spouse Current Living House Arrangements Number of Floors ( Two Floors Floors) Support System Spouse Does the Patient Yes Have Assistance After Surgery Patient Discharge Return Home Plan Description Comment Pt advised possible overnight length of stay per surgeon Feels Safe in Yes Current Environment Been Physically Hurt No or Threatened By a Person in Current Environment Do you have thoughts None of harming yourself or others? Are you currently No considering suicide? Do you have a plan No Plan to hurt yourself or others? Do You Have Any No Spiritual Beliefs That May Affect Your HC Choices? Do You Have Any No Cultural Practices That May Affect Your HC Choices? Comment Mormon Who Can We Speak to Family, friends About Patient's Care Identifying Code for Declines to issue Release of Patient Information Health Care Proxy/ Liss () Next of Kin Health Care Proxy [phone] Phone Number Emergency Contact Liss () Name Emergency Contact [phone] Phone Number Advance Directives? Yes Advance Directives No on File Power of Epic Cadence Analyst Yes Power of Epic Cadence Analyst Liss () Name Power of Epic Cadence Analyst [phone] Phone Number PAC Instructions Assistance for 24 hours post-op,Durable medical equipment,Medications to take/avoid,Nasal antibiotic,No ETOH/petroleum product on skin DOS,NPO,Post-op transportation,Pre-surgical wash,Sturdy shoes/ comfortable clothes,Do not bring valuables and remove jewelry
--- NOTE | 2025-02-26 09:04 | OT.IP.EVAL ---
Current Diagnoses Unilateral primary osteoarthritis, left hip (02/25/25) Surgery Performed Operation Date: 02/25/25 13:15 Actual Procedures p Total Hip Arthroplasty(Left) - Summer Mari MD Past Medical History (Last Updated 02/17/25 @ 13:57 by Ciara Villanueva, RN) Arthritis CAD (coronary artery disease), [place] coronary artery Carotid stenosis Chronic back pain Chronic neck pain Complete heart block (07/19/23) COPD (chronic obstructive pulmonary disease) Diverticulosis First degree AV block Glaucoma HLD (hyperlipidemia) HTN (hypertension) Kidney stones Neuropathy Osteoarthritis Pacemaker (07/19/23) Psoriasis SOB (shortness of breath) Vasovagal syncope Surgical History (Last Updated 02/17/25 @ 14:55 by Ciara Villanueva, RN) History of surgery (~1981) History of total right hip replacement (06/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 Activities of Daily Able to do all ADL and IADL needs. Living and IADL's Social History Household Members spouse Living Arrangements House Number of Floors ( 3 or More Floors Floors) Number of Stairs To 6 steps from the garage with right rail up. 12 steps Enter/Railing? with left rail to the laundry/Living room area, another 6 [id number] steps with right rails to the bedroom level. Home Environment Standard Height Toilet,Tub/Shower Home Equipment Front Wheel Walker,Straight Cane,Hand Held Shower, Hand Sewer,Grab Bars In Shower Additional Social Pt states has a power recliner that he plans to sleep History Comment in. M2 OT-IP Current Condition Start: 02/26/25 09:07 Freq: Status: Active Protocol: Document 02/26/25 09:07 [facility] (Rec: 02/26/25 09:19 [facility] Desktop) Occupational Therapy Current Condition Current Condition Evaluation Date 02/26/25 Treatment Diagnosis S/P L CESARIO posterior approach Diagnosis Onset Date 02/25/25 Post Operative Precautions Posterior Hip No Hip Flexion > 90 degrees,No Hip Internal Rotation,No Precautions Hip Adduction M3 OT- IP Subjective and Pain Start: 02/26/25 09:07 Freq: Status: Active Protocol: Document 02/26/25 09:07 [facility] (Rec: 02/26/25 09:19 [facility] Desktop) OT- Subjective Occupational Therapy Visit Type Type Initial Evaluation Visit Start Time 08:25 Visit Stop Time 09:04 Occupational Therapy Visit Comments Patient Comments Pt agreed to get dressed. Patient/Caregiver TO go home. Goals OT Pain Assessment Pain When Pain Assessed At Rest Pain Present Pain Present Denied Pain M4 OT- IP ADL's Start: 02/26/25 09:07 Freq: Status: Active Protocol: Document 02/26/25 09:07 [facility] (Rec: 02/26/25 09:19 [facility] Desktop) OT GHP-[id number] General Evaluation Self-Feeding Ability Independent OT ADL-Oral Care General Eval Oral Care Ability Independent Comments Oral Care Comments Pt able to use mouthwash while standing at the sink. OT ADL-Dressing General Eval Lower Body Dressing Maximum Assistance Ability Areas Needing Socks,Shoes Assistance Comments OT Dressing Comments Able to practice use of senior drafter and sock aid. Educated to dress his LLE first and take out last. Reminders for pt not to bend too far forwards. OT ADL-Toileting Comments OT Toileting Pt not having to go. Spoke of use of urinal and best to Comments have RTS/BSC. Pt states will just be sure to keep his LLE forwards prior to sitting and standing. OT ADL-Bathing Comments OT Bathing Comments Pt will benefit from a tub bench, pt refusing and states will be fine with his to assist. M5 OT- IP IADL's Start: 02/26/25 09:07 Freq: Status: Active Protocol: Document 02/26/25 09:07 [facility] (Rec: 02/26/25 09:19 [facility] Desktop) OT-Instrumental Activities of Daily Living Home Safety Awareness Awareness of Need Good Awareness for Assistance at Home Ability to Problem Able to Problem Solve Solve Emergency Situations Medication Management Medication Best to have supervision as pt is still a bit groggy. Management Comments Meal Preparation Meal Preparation Caregiver Provides Assist Management Sme Management Sme Caregiver Provides Assist M6 OT- IP Functional Cognition Start: 02/26/25 09:07 Freq: Status: Active Protocol: Document 02/26/25 09:07 [facility] (Rec: 02/26/25 09:19 [facility] Desktop) Cognitive Factors Limiting Selfcare Function Cognitive Ability Level of Alertness Alert Patient Orientation Name,Age,Birthday,Month,Date,Year,Day of Week,Place, Situation Attention Span Capable of Focused Attention,Capable of Sustained Ability Attention Ability to Follow Able to Follow One Step Commands Commands Memory Description Short Term Impaired Safety Awareness Decreased Recall of Precautions,Decreased Ability to Apply Precautions,Underestimates Need for Assistance Cognitive Comments Cognitive Assessment Pt is a bit impulsive and not able to recall all his Comments hip precautions at this time and needing MAX vc for safety. OT- Vision and Hearing OT- Hearing Assessment OT- Hearing Hearing Impaired Assessment OT- Vision Assessment Visual Acuity Glasses For Reading Visual Attentiveness WFL Occular Pursuits WFL M7 OT- IP Mobility and Balance Start: 02/26/25 09:07 Freq: Status: Active Protocol: Document 02/26/25 09:07 [facility] (Rec: 02/26/25 09:19 [facility] Desktop) OT-Transfer Assessment Sit to and From Stand Sit to and from Contact Guard Assistance Stand Transfers Transfer Ability Standby Assistance,Contact Guard Assistance Technique Transfer Destination Bed Transfer Technique Stand Step Pivot Devices Transfer Assistive Gait Belt,Front Wheeled Walker Devices OT- Balance Assessment Sitting Balance and Reactions Static Sitting Normal Balance Ability Dynamic Sitting Good Balance Ability Standing Balance and Reactions Static Standing Good Balance Ability Dynamic Standing Fair Balance Ability M8 OT- IP Objective Assessments Start: 02/26/25 09:07 Freq: Status: Active Protocol: Document 02/26/25 09:07 [facility] (Rec: 02/26/25 09:19 [facility] Desktop) OT Gross Range of Motion Upper Extremity Range of Motion Assessment Left Impaired OT Strength Upper Extremity Strength Assessment Left Impaired Comments Strength Comments LUE decreased due to arthritis per pt. M9 OT- IP Assessment and Plan Start: 02/26/25 09:07 Freq: Status: Active Protocol: Document 02/26/25 09:07 [facility] (Rec: 02/26/25 09:19 [facility] Desktop) OT Summary Assessment and Plan Potential Rehabilitation Good Potential Analytic Complexity Low at Evaluation Summary OT Impairments Strength,Balance,Functional Mobility,Dressing,Toileting ,Bathing,Toilet Transfers,Shower Transfers Progress Towards Progressing Toward Goals Goals Assessment Summary Pt low complexity and main barriers are steps, needing reminders for his hip precautions for ADL and mobility needs. Pt will benefit from sock aid, RTS/BSC and tub bench but pt states will be fine and not needed. Pt to go home with his to assist and have outpt PT. Goals Grooming Goal Independent Dressing Goal Independent,Hand Sewer,Sock Aid Toileting Goal Independent Bathing Goal Standby Assistance Toilet Transfer Goal Independent Shower Transfer Goal Standby Assistance Days to Meet Goals 5 Frequency of Treatment Other frequency 5x/week Treatment Plan OT Treatment Plan ADL Training,Functional Mobility,Patient/Family Education,Discharge Planning Discharge Recommendations OT Discharge Home with Assistance,Outpatient PT Recommendations Home Equipment Needs BSC/RTS, sock aid, tub bench Transportation Needs Private Vehicle at Discharge
[2025-02-26] MEDS: GABAPENTIN 300 MG CAPSULE PO (09:07)
[2025-02-26] MEDS: ASPIRIN EC 81 MG TABLET PO (09:07)
[2025-02-26] MEDS: DOCUSATE 100 MG CAPSULE PO (09:07)
--- NOTE | 2025-02-26 10:20 | PT.IIE ---
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) Hx of abdominal surgery (~1979) Hx of heart artery stent (04/28/17) Hx of heart artery stent (07/19/23) Medical History (Last Updated 02/17/25 @ 13:57 by Ciara Villanueva, JIMMIE) Arthritis CAD (coronary artery disease), stebbins coronary artery Carotid stenosis Chronic back pain Chronic neck pain Complete heart block (07/19/23) COPD (chronic obstructive pulmonary disease) Diverticulosis First degree AV block Glaucoma HLD (hyperlipidemia) HTN (hypertension) Kidney stones Neuropathy Osteoarthritis Pacemaker (07/19/23) Psoriasis SOB (shortness of breath) Vasovagal syncope Physical Therapy Inpatient Evaluation/Re-Eval M1 PT/OT-IP Prior Functional Status Start: 02/26/25 12:46 Freq: NEEDED Status: Active Protocol: Document 02/26/25 10:20 AB (Rec: 02/26/25 12:58 AB [id number]) Medical Review Prior Functional Status Medical History Yes Reviewed Communication able to make needs known Mobility and Gait pt stated that he was independent with all mobilities and ambulation using a SPC Activities of Daily Able to do all ADL and IADL needs. Living and IADL's Social History Household Members spouse Living Arrangements House Number of Floors ( 3 or More Floors Floors) Number of Stairs To 6 steps from the garage with R rail ascending to enter Enter/Railing? 12 steps with left rail ascending to the laundry/Living room area 6 [id number] steps with right rail ascending to the bedroom level. Home Environment Standard Height Toilet,Tub/Shower Home Equipment Front Wheel Walker,Straight Cane,Hand Held Shower, Dairy Equipment Repairer,Grab Bars In Shower Additional Social Pt states has a power recliner that he plans to sleep History Comment in. M2 PT-IP Current Condition Start: 02/26/25 12:46 Freq: NEEDED Status: Active Protocol: Document 02/26/25 10:20 AB (Rec: 02/26/25 12:58 [id number]) Physical Therapy Current Condition Current Condition Evaluation Date 02/26/25 Treatment Diagnosis s/p L CESARIO posterior; difficulty in walking Onset Date 02/25/25 M3 PT-IP Subjective Start: 02/26/25 12:46 Freq: NEEDED Status: Active Protocol: Document 02/26/25 10:20 AB (Rec: 02/26/25 12:58 [id number]) Subjective Physical Therapy Visit Type Type Initial Evaluation Visit Start Time 10:20 Visit Stop Time 11:05 Number of EXPELLER OPERATOR Visits 0 Physical Therapy Visit Comments Patient Comments agreeable to do PT Therapy Pain Assessment Pain When Pain Assessed At Rest Pain Present Pain Present Pain Reported Location Left Hip Intensity 4 Scale Used Numeric (0 - 10) Pain Behaviors Guarding Pain Management Distraction,Modification of Treatment,Re-positioning, Techniques Timing of Activity with Medications hip Scale Used Numeric (0 - 10) M4 PT-IP Mobility and Gait Start: 02/26/25 12:46 Freq: NEEDED Status: Active Protocol: Document 02/26/25 10:20 AB (Rec: 02/26/25 12:58 [id number]) PT-Bed Mobility Assessment Supine to Sit Supine to Sit Moderate Assistance Sit to Supine Sit to Supine Moderate Assistance PT-Transfer Assessment Sit to and From Stand Sit to and from Standby Assistance,1 Person Assistance,Use of Upper Stand Extremities Equipment Transfer Assistive Gait Belt,Front Wheeled Walker Device Orthotic/Prosthetic No Devices or Brace: Transfers Transfer Destination Bed,Chair Transfer Technique ambulated Transfer Ability Level of Assist Standby Assistance,1 Person Assistance,Use of Upper Extremities Comments Mobility Comments pt sitting on the chair and agreeable to do PT. obtained PLOF and home set up. pt was able to recall his hip precautions. sit to stand from chair SBA and cues. pt can be impulsive and cues provided for precautions. pt ambulated in room ~ 40 ft using FWW SBA . cued for safety. pt completed bed mobility sit<> supine mod A for LE elevation. pt stated that spouse can assist him with LE. pt also plans to sleep on his recliner chair. sit to stand from the bed SBA and ambulated to w/c ~ 20 ft using FWW SBA. stair climbing training. pt completed up/down steps holding on to L rail ascending on first attempt and completed again using R rail SBA and cues. assisted pt back to his room. ambulated from w/c to chair using FWW SBA. call light and table placed next to pt. Gait Assessment Gait Gait Assistance Standby Assistance Required: Distance (Feet) 40 Able to Maintain Yes Weight Bearing Status During Gait Assistive Devices Assistive Device Gait Belt,Front Wheeled Walker Orthotic/Prosthetic No Devices or Brace: Gait Deviations General Gait Pattern Decreased Stride Length,Decreased Feet Clearance Factors Limiting Gait Function Factors Limiting Decreased Activity Tolerance,Decreased Strength, Gait Function Difficulty Following Directions,Limited Range of Motion ,Pain,Poor Balance,Poor Safety Awareness Stair Climbing Assessment Evaluation Level of Assist On Standby Assistance Stairs Devices Stair Climbing Left Railing,Right Railing Assistive Devices Technique/Endurance Stair Climbing Ascend and Descend Direction Stair Climbing Step to Step Technique Number of Steps 3 Climbed Query Text: Stair Climbing Set # 2 Repetitions (reps) PT-Balance Assessment Sitting Balance and Reactions Static Sitting Normal Balance Ability Dynamic Sitting Good Balance Ability Standing Balance and Reactions Static Standing Good Balance Ability Dynamic Standing Fair Balance Ability Device Used FWW M5 PT-IP Objective Assessments Start: 02/26/25 12:46 Freq: NEEDED Status: Active Protocol: Document 02/26/25 10:20 AB (Rec: 02/26/25 12:58 AB [id number]) Orientation Orientation/Cognition Level of Alertness Alert Orientation Name,Place,Situation Safety Awareness Decreased Safety Awareness Memory Description Short Term Impaired Gross Range of Motion Lower Extremity ROM Assessment Within Functional Limits Strength Lower Extremity Strength Assessment Left Impaired Hip 3+/5 Knee 4-/5 Muscle Tone Muscle Tone WNL Yes M6 PT-IP Treatment Start: 02/26/25 12:46 Freq: NEEDED Status: Active Protocol: Document 02/26/25 10:20 AB (Rec: 02/26/25 12:58 AB [id number]) Physical Therapy Treatment Education Education Provided Precautions,Weight Bearing Status,Post-Op Packet,Safety M7 PT-IP Assessment and Plan Start: 02/26/25 12:46 Freq: NEEDED Status: Active Protocol: Document 02/26/25 10:20 AB (Rec: 02/26/25 12:58 AB [id number]) PT Summary Assessment and Plan Potential Rehabilitation Fair Potential Status of Condition Evolving at Evaluation Summary Impairments Pain,ROM,Strength,Balance,Coordination,Sensation,Tone, Cognition,Bed Mobility,Transfers,Gait,Activity Tolerance Assessment Summary pt is a 79 y/o M s/p L CESARIO posterior approach POD 1. pt has L hip posterior precautions and is WBAT. pt requiring mod A for bed mobility, SBA for transfers and ambulation using FWW. pt plans to go home and spouse to assist him. Goals Bed Mobility Goal Independent Transfer Goal Independent,Front Wheeled Walker Gait Goal Independent,Front Wheel Walker Gait Distance 300 Other Goals up/down 12 steps using L rail ascending mod I up/down 12 steps using R rail ascending mod I Days to Meet Goals 5 Frequency of Treatment Frequency Of Twice a Day Treatment Treatment Plan Physical Therapy Bed Mobility Training,Transfer Training,Gait Training, Treatment Plan Therapeutic Exercise,Balance Retraining,Post Op Education,Discharge Planning,Hot or Cold Pack, Neuromuscular Re-ed,Coordination Retraining,Manual Therapy Precautions Posterior Hip No Hip Flexion > 90 degrees,No Hip Internal Rotation,No Precautions Hip Adduction Weight Bearing Status Weight Bearing Weight Bear as Tolerated Status Allowed Weight LLE WBAT Bearing Amount ( enter % or #) (%) Recommendations To Nursing Amount of Assist 1 Person Assist Needed Discharge Recommendations PT Discharge Home with Assistance,Outpatient PT Recommendations Transportation Needs Private Vehicle at Discharge - PT assist 1
--- NOTE | 2025-02-26 12:56 | PC.NURSE ---
Patient is evaluated by surgeon this a.m. and cleared for discharge home today after PT/OT sessions. He is slightly forgetful ie; medication taken and remembering to call before walking in the gastelum, but OX3.VSS, afebrile on RA. Incision site with FLY c/d/i flashing green light. Education provided about site care, Fly, activity limitations, medications as well as follow up appointment and s/sx of complication. He and verbalize understanding of discharge instructions. He is escorted via w/ch to private vehicle this afternoon at 1207 pm with all of his belongings including FWW.
== END 2025-02-26 12:07 | disposition home or self-care (01) ==
LOC: OR 10:50 → AC 15:14
PROVIDERS: PCP Nurse Practitioner Family; Referring Provider Orthopaedic Surgery; Visit Provider Orthopaedic Surgery
PROC: 0SRB0JZ Replacement of Left Hip Joint with Synthetic Substitute, Open Approach (ICD-10-PCS; CPT 27130; principal; 2025-02-25 13:15)
DX: M16.12 Unilateral primary osteoarthritis, left hip (principal); I10 Essential (primary) hypertension; Z96.641 Presence of right artificial hip joint; Z79.82 Long term (current) use of aspirin; Z95.0 Presence of cardiac pacemaker; Z87.891 Personal history of nicotine dependence
CPT/HCPCS: 27130; 36415; 72170; 73502; 85014; 85018; 97162; 97165; 97530; 97535; C1776; C1713; J0165; J0666; J0689; J1100; J1171; J2250; J2405; J2704; J3010; J3375; J3490